=== PATIENT | female | born 1955 | race Caucasian/White ===

== ENCOUNTER → 2017-04-07 | Outpatient (CLI) | payer BC ==
[~2017-04-07] MED LIST: GADOBUTROL 10 MMOL/10 ML PFS ONE
== END | disposition home or self-care (01) ==
LOC: CFH 07:31
PROVIDERS: ATTEND Registered Nurse
DX: G93.89 Other specified disorders of brain (principal); R90.82 White matter disease, unspecified
CPT/HCPCS: 70553; 95819; A9585

== ENCOUNTER 2017-05-26 06:50 | Day surgery (SDC) | payer BC ==
[~2017-05-26] VITALS: Ht 162.6 cm; Wt 86.0 kg
[2017-05-26 07:19] VITALS: BP 129/75
[2017-05-26] MEDS ORDERED: SODIUM CHLORIDE 0.9% 1,000 ML IV SCH (07:42)
[2017-05-26] MEDS ORDERED: LIDOCAINE 1%, 20ML ONE (08:34)
[2017-05-30 16:07] LABS: ALBUMIN CSF 24 mg/dL (11-48); ALBUMIN SERUM 4.2 g/dL (3.6-4.8); CSF IGG INDEX 0.5 (0.0-0.7); CSF/SERUM ALBUMIN INDEX 6 (0-8); IGG SERUM 555 mg/dL (700-1600); IGG/ALBUMIN RATIO CSF 0.07 (0.00-0.25); MYELIN BASIC PROTEIN CSF 2.8 ng/mL (0.0-1.2)
== END 2017-05-26 12:00 ==
LOC: OUT 06:50
PROVIDERS: ATTEND Registered Nurse
DX: R51 Headache (principal); R11.10 Vomiting, unspecified; R50.9 Fever, unspecified
CPT/HCPCS: 36415; 62270; 82040; 82042; 82784; 83873; 86645; 86695; 86696; 86762; 86777; 86778; J3490; J7030

== ENCOUNTER → 2017-09-12 | Outpatient (CLI) | payer BC | END | disposition home or self-care (01) | LOC: CFH 08:14 | PROVIDERS: ATTEND Physical Medicine & Rehabilitation | DX: M48.061 Spinal stenosis, lumbar region without neurogenic claudication (principal); M12.88 Other specific arthropathies, not elsewhere classified, other specified site | CPT/HCPCS: 72148 ==

== ENCOUNTER → 2018-10-12 | Outpatient (CLI) | payer BC | END | disposition home or self-care (01) | LOC: CFH 12:53 | PROVIDERS: ATTEND Nurse Practitioner Family | DX: M50.322 Other cervical disc degeneration at C5-C6 level (principal); M50.221 Other cervical disc displacement at C4-C5 level; M48.02 Spinal stenosis, cervical region; M43.8X2 Other specified deforming dorsopathies, cervical region; R90.82 White matter disease, unspecified; G62.9 Polyneuropathy, unspecified; H53.9 Unspecified visual disturbance; R20.0 Anesthesia of skin; R20.2 Paresthesia of skin; R26.89 Other abnormalities of gait and mobility | CPT/HCPCS: 70553; 72156; A9585 ==